=== PATIENT | female | born 1935 | race Caucasian/White ===

== ENCOUNTER 2018-10-29 05:13 | Day surgery (SDC) | payer MEDICARE, BC ==
[~2018-10-29] VITALS: Ht 154.9 cm; Wt 58.1 kg
[2018-10-29] VITALS (11 sets, daily range): BP systolic 105–133; BP diastolic 41–70
[~2018-10-29 05:13] MED LIST: ATENOLOL25 MG ORAL; ENALAPRIL MALE2.5 MG ORAL; HYDROCODON-ACE1 EA16 ORAL; OMEPRAZOLE20 M2 ORAL; PRAVASTATIN SOD20 M1 ORAL; TRIAMTERENE-HC1 EAC6 ORAL
[2018-10-29] MEDS ORDERED: cefOXitin Sod 1 GM in D5W 55 ML IVPB ONE (07:00)
[2018-10-29] MEDS ORDERED: Ropivacaine 5mg/ml Vial 30ml INJ ONE (07:09)
[2018-10-29] MEDS ORDERED: cefOXitin 1gm Inj ONE (07:16)
[2018-10-29] MEDS ORDERED: Propofol 200mg/20ml IV ONE (07:30)
[2018-10-29] MEDS ORDERED: Sterile Water Irrig 1000ml IRRIG ONE (07:30)
[2018-10-29] MEDS ORDERED: Lidocaine 1% MPF 10mg/ml 5ml ONE (07:30)
[2018-10-29] MEDS ORDERED: Ketorolac 30mg Inj ONE (07:30)
[2018-10-29] MEDS ORDERED: LR 1000ml ONE (07:30)
[2018-10-29] MEDS ORDERED: Midazolam 2mg/2ml Inj ONE (07:36)
[2018-10-29] MEDS ORDERED: fentaNYL 100 mcg/2 mL IV ONE (07:36)
--- NOTE | 2018-10-29 07:58 | Pre-Procedure Note/Attestation ---
Pre-Procedure Note/Attestation Complete Prior to Procedure Planned Procedure: not applicable Procedure Narrative: D&C, Hysteroscopy, possible polypectomy Indications for Procedure Pre-Operative Diagnosis: Endometrial thickening, possible polyp Attestation I attest that I discussed the nature of the procedure; its benefits; risks and complications; and alternatives (and the risks and benefits of such alternatives ), prior to the procedure, with the patient (or the patient's legal primary care sales representative). I attest that, if there was a reasonable possibility of needing a blood transfusion, the patient (or the patient's legal primary care sales representative) was given the [facility] standardized written summary, pursuant to the Jordon Helen Blood Safety Act ([place] Health and Safety Code # 1645, as amended). I attest that I re-evaluated the patient just prior to the surgery and that there has been no change in the patient's H&P, except as documented below:NONE Reza Jessica MD Oct 29, 2018 07:58
[2018-10-29] MEDS ORDERED: fentaNYL 100 mcg/2 mL IV PRN (08:45)
--- NOTE | 2018-10-29 08:48 | Anethesia Preoperative Eval ---
Anesthesia Pre-op PMH/ROS General Date of Evaluation: Oct 29, 2018 Time of Evaluation: 07:30 Anesthesiologist: Rush ASA Score: ASA 2 Mallampati Score Class I : Soft palate, uvula, fauces, pillars visible Class II: Soft palate, uvula, fauces visible Class III: Soft palate, base of uvula visible Class IV: Only hard plate visible Mallampati Classification: Class II Surgeon: Aarcely Diagnosis: polyp Surgical Procedure: Hysteroscpy Anesthesia History: none Family History: no anesthesia problems Allergies: Coded Allergies: LEVOFLOXACIN (Verified Allergy, Intermediate, "burning" per Dr. Garcia , 10/28/18) SULFA (SULFONAMIDE ANTIBIOTICS) (Verified Allergy, Intermediate, rash, ) MONTEL[place]AST (Verified Adverse Reaction, Intermediate, "body weakness", ) Medications: see eMAR Patient NPO?: Yes NPO Date: Oct 29, 2018 NPO Time: 00:01 Past Medical History Cardiovascular: Reports: HTN; Denies: CAD, [place], valve dz, arrhythmia, other Pulmonary: Denies: asthma, COPD, AMANDA, other Gastrointestinal/Genitourinary: Reports: GERD; Denies: CRI, ESRD, other Neurologic/Psychiatric: Denies: dementia, CVA, depression/anxiety, TIA, other Endocrine: Denies: DM, hypothyroidism, steroids, other HEENT: Denies: cataract (L), cataract (R), glaucoma, BLACKFEET (L), BLACKFEET (R), other Hematology/Immune: Denies: anemia, DVT, bleeding disorder, other Musculoskeletal/Integumentary: Denies: OA, RA, DJD, DDD, edema, other PSxH Narrative: colonoscopy Anesthesia Pre-op Phys. Exam Physician Exam Last Vital Signs Date Time Temp Pulse Resp B/P (MAP) Pulse Ox O2 Delivery O2 Flow Rate FiO2 10/29/18 05:54 97.9 53 20 133/68 99 Room Air Constitutional: NAD Neurologic: CN 2-12 intact Cardiovascular: RRR Respiratory: CTA Gastrointestinal: S/NT/ND Airway Exam Mallampati Classification 2 Mallampati Score: Class II MO: full ROM: full Dentures: no upper, no lower Anesthesia Pre-op A/P Studies Pre-op Studies: EKG - SR Risk Assessment & Plan Plan: General Pre-Antibiotics Drug: Mefoxitin Given Within 1 Hr of Incision: Yes Time Given: 07:45 Lakshmi Beverly [employer]ES [employer]AD Oct 29, 2018 08:48
--- NOTE | 2018-10-29 09:07 | Brief Operative Note ---
Immediate Post Operative Note Operative Note Pre-op Diagnosis: Endometrial thickening, possible polyp Procedure: Extensive, Multiple Polypectomy, EMC Post-op Diagnosis: Multiple, Large Polyps Post-op Diagnosis: same as pre-op Findings: consistent w/pre-op dx studies Surgeon: Reza Jessica Anesthesiologist: Susan Matthews Anesthesia: general Specimen: yes - Multiple Polyps Complications: none Condition: stable Fluids: LR TKO Estimated Blood Loss: none Drains: none Implant(s) used?: No Reza Jessica MD Oct 29, 2018 09:07
--- NOTE | 2018-10-29 09:14 | Immediate Post-Op Evaluation ---
Immediate Post-Op Evalulation Immediate Post-Op Evalulation Procedure: hysteroscopy and D/C Date of Evaluation: Oct 29, 2018 Time of Evaluation: 09:13 IV Fluids: 500 Blood Pressure Systolic: 106 Blood Pressure Diastolic: 47 Pulse Rate: 64 Respiratory Rate: 14 O2 Sat by Pulse Oximetry: 99 Temperature (Fahrenheit): 97.6 Nausea: No Vomiting: No Complications none Patient Status: awake, reacts, patent Hydration Status: adequate Drug: mefoxitin Given Within 1 Hr of Incision: Yes Time Given: 07:45 Lakshmi Beverly CRNA Oct 29, 2018 09:14
[2018-10-29] MEDS ORDERED: Tylenol #3 tab (300mg/30mg) ORAL PRN (09:15)
--- NOTE | 2018-10-29 11:56 | 48 Hour Post Anesthesia Eval ---
Post Anesthesia Evaluation Procedure: hysteroscopy and D/C Date of Evaluation: Oct 29, 2018 Time of Evaluation: 11:56 Blood Pressure Systolic: 122 0: 70 Pulse Rate: 54 Respiratory Rate: 14 O2 Sat by Pulse Oximetry: 98 Airway: patent Nausea: No Vomiting: No Hydration Status: adequate Cardiopulmonary Status: stable Mental Status/LOC: patient returned to baseline Follow-up Care/Observations: na Follow-up care needed: N/A Lakshmi Beverly CRNA Oct 29, 2018 11:56
[2018-10-29] MEDS ORDERED: D5 1/2NS 1,000 ML IV SCH (13:00)
--- NOTE | 2018-10-29 15:15 | Operative Note - Dictated ---
DATE OF OPERATION: 10/29/2018 PREOPERATIVE DIAGNOSIS: Endometrial thickening, possible endometrial polyp. POSTOPERATIVE DIAGNOSES: Extensive large multiple endometrial polyps. PROCEDURE PERFORMED: Video hysteroscopy, multiple polypectomy of large polyps, and endometrial curettage. SURGEON: Reza Jessica M.D. LIGHT BULB REPLACER: None. ANESTHESIOLOGIST: Lakshmi Beverly CRNA. PROCEDURE IN DETAIL: After all the appropriate consents were signed, the patient was brought to the operating room, placed on the table in supine position. General anesthesia was induced without complication. The patient was then placed in the dorsal lithotomy position and she was prepped and draped in the usual sterile fashion. The bladder was emptied with an in-and-out catheter. The procedure then continued with video hysteroscopy; however, the cervical os could not be well visualized. Additional manipulation was required to visualize the cervical os, which was fully stenotic. Very gradual dilation of cervical os was undertaken and finally the os was better visualized with the hysteroscope and dilated with the tip of the hysteroscope. The uterus was now visualized. There appeared to be a large number of polyps inside the cavity. At this time, additional dilation was undertaken with Hegar dilators to Hegar #9. The procedure then continued with additional hysteroscopy and utilizing a polyp forceps to remove the endometrial polyp after direct visualization with a hysteroscope. At this time, the procedure continued with endometrial curettage. Video hysteroscopy then was performed to visualize the cavity. All the polyps were removed and both tubal ostia were visualized. Instruments were now removed after the single-tooth tenaculum was removed from the cervix. Cervix was fully hemostatic. The patient was then placed in the supine position, awakened from general anesthesia, and brought to the recovery room in excellent condition. She tolerated the procedure very well. Reza Jessica M.D. DR: NORMA JOB#: [id number] CC:
== END 2018-10-29 10:35 | disposition home or self-care (01) ==
LOC: SUR 05:13
DX: N84.0 Polyp of corpus uteri (principal); Z90.710 Acquired absence of both cervix and uterus; Z88.2 Allergy status to sulfonamides; I10 Essential (primary) hypertension; K21.9 Gastro-esophageal reflux disease without esophagitis; Z88.8 Allergy status to other drugs, medicaments and biological substances
CPT/HCPCS: 58558; J0694; J1885; J2250; J2704; J2795; J3010; 94003; 94150